=== PATIENT | female | born 1990 | race Hispanic/Latino ===

== ENCOUNTER 2017-12-16 12:51 | Emergency (ER) | payer BC ==
[~2017-12-16] VITALS: Ht 165.1 cm; Wt 113.4 kg
[~2017-12-16 12:51] MED LIST: CEFZIL PO
[2017-12-16 13:35] LABS: BILIRUBIN,URINE NEGATIVE (NEGATIVE); CLARITY,URINE CLEAR (CLEAR); COLOR,URINE YELLOW (YELLOW); KETONES,URINE NEGATIVE (NEGATIVE); LEUKOCYTE ESTERASE ,URINE NEGATIVE (NEGATIVE); NITRITE,URINE NEGATIVE (NEGATIVE); PROTEIN,URINE DIPSTICK NEGATIVE (NEGATIVE); URINE UROBILINOGEN 0.2 mg/dL (0.2 - 1)
[2017-12-16 13:44] LABS: PREGNANCY TEST, URINE NEGATIVE (NEGATIVE)
[2017-12-16 13:46] LABS: AMORPHOUS SEDIMENT,URINE MODERATE (FEW); BACTERIA,URINE MODERATE /HPF; EPITHELIAL CELLS,URINE FEW /LPF
--- NOTE | 2017-12-16 14:27 | Diagnostic Imaging Report ---
EXAM: CT Abdomen and Pelvis WITHOUT contrast INDICATION: \S\LEFT FLANK \[id number] \S\[id number] COMPARISON: None. TECHNIQUE: Abdomen and pelvis were scanned utilizing a multidetector helical scanner from the lung base to the pubic symphysis without administration of IV contrast. Coronal and sagittal reformations were obtained. Routine protocol was performed. IV CONTRAST: None ORAL CONTRAST: Water COMPLICATIONS: None RADIATION DOSE: Total DLP: 959.4 mGy*cm Estimated effective dose: (DLP x 0.015 x size factor) mSv CTDIvol has been reviewed. It is below the limits set by the Radiation Protocol Committee (RPC). FINDINGS: Absence of intravenous contrast decreases sensitivity for detection of focal lesions and vascular pathology. LINES and TUBES: None. LOWER THORAX: Unremarkable HEPATOBILIARY: Diffuse hypoattenuation of the liver, compatible with steatosis. No focal hepatic lesions. No biliary ductal dilation. GALLBLADDER: No radio-opaque stones or sludge. No wall thickening. SPLEEN: No splenomegaly. PANCREAS: No focal masses or ductal dilatation. ADRENALS: No adrenal nodules KIDNEYS/URETERS: No hydronephrosis. No cystic or solid mass lesions. No stones. GI TRACT: No abnormal distention, wall thickening, or evidence of bowel obstruction. Appendix is normal. PELVIC ORGANS/BLADDER: Unremarkable. LYMPH NODES: No lymphadenopathy. VESSELS: Unremarkable. PERITONEUM / RETROPERITONEUM: No free air or fluid. BONES: Unremarkable. SOFT TISSUES: Unremarkable. IMPRESSION: 1. No acute abnormalities in the abdomen and pelvis. 2. Hepatic steatosis. Signed by: DR. Herman Little MD on 12/16/2017 2:24 PM
[2017-12-16] MEDS ORDERED: FENTANYL CITRATE/PF 100MCG/2 ML INJ IJ ONE (15:30)
[2017-12-16] MEDS ORDERED: PREDNISONE 20 MG TAB PO ONE (15:30)
[2017-12-16] MEDS ORDERED: DIAZEPAM 2 MG TAB PO ONE (15:30)
--- NOTE | 2017-12-16 17:01 | Diagnostic Imaging Report ---
Lumbar spine two views CPT code: 36141 Indication: Mid lower back pain radiates to left side, upper buttock area Technique: A.P. and lateral views of the lumbar spine obtained Comparison: CT abdomen/pelvis 1409 hours Findings: There are five non rib bearing vertebral bodies. There is mild levoscoliosis with the apex at L3. No rotational component. The transverse processes are intact. The vertebral body heights are well maintained. The spinous processes are normally aligned. There is no evidence of subluxation. There is minimal disc space narrowing at L5-S1. No significant osteophytosis. No degenerative changes elsewhere. The facets and spinous processes are normally aligned. Sacroiliac joints are normal. The sacrum is normal. The bowel gas pattern is unremarkable. IMPRESSION: 1. Mild levoscoliosis. This is likely positional. 2. Minimal disc space narrowing of L5-S1. Signed by: Dr. Anamika Castillo MD on 12/16/2017 4:58 PM
[2017-12-16] MEDS ORDERED: VALIUM2 MG PO (18:24)
[2017-12-16] MEDS ORDERED: PREDNISONE20 MG PO (18:26)
[2017-12-16] MEDS ORDERED: ULTRAM 50MG50 MG PO (18:26)
[2017-12-16 19:31] VITALS: BP 118/89
== END 2017-12-16 19:30 | disposition home or self-care (01) ==
LOC: ER 12:51
DX: M54.5 Low back pain (principal); S39.012A Strain of muscle, fascia and tendon of lower back, initial encounter; M54.16 Radiculopathy, lumbar region; M51.26 Other intervertebral disc displacement, lumbar region
CPT/HCPCS: 72100; 74176; 81001; 81025; 99283